=== PATIENT | male | born 1950 | race Caucasian/White ===

== ENCOUNTER → 2017-01-12 | Outpatient (CLI) | payer OTHER, MEDICARE | LOC: BMCIMAGING 09:33 | PROVIDERS: ATTEND Emergency Medicine | DX: S89.92XA Unspecified injury of left lower leg, initial encounter (principal); X50.9XXA Other and unspecified overexertion or strenuous movements or postures, initial encounter ==

== ENCOUNTER → 2017-05-23 | Outpatient (CLI) | payer OTHER, MEDICARE | LOC: FIMAGING 07:50 | PROVIDERS: ATTEND Family Medicine Sports Medicine | DX: N50.819 Testicular pain, unspecified (principal) ==